=== PATIENT | female | born 1985 | race Two or more races ===

== ENCOUNTER 2023-02-22 08:01 | Inpatient (IN) | payer OTHER ==
[~2023-02-22] VITALS: Ht 157.5 cm; Wt 71.7 kg
[2023-02-22 09:16] LABS: MEAN CORPUSCULAR HGB CONC 29.8 g/dl (32.0-36.0); PLATELET COUNT 448 K/uL (150-450); RED BLOOD COUNT 3.97 M/uL (4.00-6.00)
[2023-02-22 09:18] LABS: HEMOGLOBIN 6.4 g/dL (12.0-15.00); MEAN CELL VOLUME 53.9 fL (80.00-100.00); MEAN CORPUSCULAR HEMOGLOBIN 16.1 pg (27.00-32.0)
[2023-02-22 09:19] LABS: HEMATOCRIT 21.4 % (36.0-45.00)
[2023-02-22 09:27] LABS: INR 1.03; PARTIAL THROMBOPLASTIN TIME 25.9 SECONDS (22.0-34.0); PROTHROMBIN TIME 10.8 SECONDS (9.0-11.5)
[2023-02-22 09:30] LABS: CALCIUM 9.2 mg/dL (8.5-10.1); CREATININE SERUM 0.65 mg/dL (0.55-1.02); GFR 102.01; POTASSIUM 3.59 mEq/L (3.5-5.1)
[2023-02-22 10:33] LABS: URINE APPEARANCE Clear; URINE BILIRRUBIN Negative (NEGATIVE); URINE BLOOD Trace; URINE COLOR Yellow; URINE GLUCOSE Negative (NEGATIVE); URINE LEUKOCYTE Trace; URINE NITRATE Negative; URINE PROTEIN Negative (NEGATIVE); URINE UROBILINOGEN 0.2 E.U./dl
[2023-02-22 10:39] LABS: URINE BACTERIA 472.3 uL (0.0-1933); URINE EPITHELIAL CELLS 33.2 uL (0.0-38.8); URINE RBC 32.6 uL (0.0-20.8); URINE WBC 36.7 uL (0.0-23.2)
[2023-02-22] MEDS ORDERED: SPRINTEC 28 DA1 EACH PO (20:30)
[2023-02-22] MEDS ORDERED: IRON325 MG PO (20:31)
[2023-02-23 09:02] LABS: MEAN CORPUSCULAR HGB CONC 31.3 g/dl (32.0-36.0); PLATELET COUNT 421 K/uL (150-450); RED BLOOD COUNT 4.79 M/uL (4.00-6.00)
[2023-02-23 09:06] LABS: HEMATOCRIT 29.5 % (36.0-45.00); HEMOGLOBIN 9.2 g/dL (12.0-15.00); MEAN CELL VOLUME 61.5 fL (80.00-100.00); MEAN CORPUSCULAR HEMOGLOBIN 19.2 pg (27.00-32.0)
== END 2023-02-23 11:34 | disposition home or self-care (01) | DRG 812 ==
LOC: ER 08:02 → OB/GYN 21:40
PROVIDERS: Emergency Medicine; ADMIT Obstetrics & Gynecology; ATTEND Obstetrics & Gynecology
PROC: 30233N1 Transfusion of Nonautologous Red Blood Cells into Peripheral Vein, Percutaneous Approach (ICD-10-PCS; principal; 2023-02-22)
PROC: BU4CZZZ Ultrasonography of Uterus and Ovaries (ICD-10-PCS; 2023-02-22)
DX: D64.9 Anemia, unspecified (principal); N93.9 Abnormal uterine and vaginal bleeding, unspecified; Z20.822 Contact with and (suspected) exposure to COVID-19

== ENCOUNTER 2024-06-15 19:55 | Emergency (ER) | payer OTHER ==
[~2024-06-15] VITALS: Ht 157.5 cm; Wt 75.3 kg
[~2024-06-15 19:55] MED LIST: IRON325 MG PO; SPRINTEC 28 DA1 EACH PO
[2024-06-15 22:22] LABS: MEAN CORPUSCULAR HGB CONC 29.2 g/dl (32.0-36.0); PLATELET COUNT 495 K/uL (150-450); RED BLOOD COUNT 3.81 M/uL (4.00-6.00)
[2024-06-15 22:25] LABS: HEMATOCRIT 20.6 % (36.0-45.00); MEAN CELL VOLUME 54.1 fL (80.00-100.00); MEAN CORPUSCULAR HEMOGLOBIN 15.7 pg (27.00-32.0); RED CELL DISTRIBUTION WIDTH 20.9 % (11.5-14.5)
[2024-06-15 22:31] LABS: INR 1.03; PARTIAL THROMBOPLASTIN TIME 24.5 SECONDS (22.0-34.0); PROTHROMBIN TIME 11.2 SECONDS (9.0-11.5)
[2024-06-15 22:35] LABS: ALBUMIN 3.5 gm/dL (3.4-5.0); BILIRUBIN TOTAL 0.32 mg/dL (0.3-1.2); CREATININE SERUM 0.81 mg/dL (0.55-1.02); GFR 78.31; GLOBULINA 4.4 G/DL (2.4-3.5); POTASSIUM 3.72 mEq/L (3.5-5.1); TOTAL PROTEIN 7.9 gm/dL (6.4-8.2)
[2024-06-16 00:16] LABS: PH,URINE 7.5 (5.0-8.0); URINE APPEARANCE Turbid; URINE BILIRRUBIN Negative (NEGATIVE); URINE BLOOD Negative; URINE COLOR Yellow; URINE GLUCOSE Negative (NEGATIVE); URINE KETONE Negative (NEGATIVE); URINE LEUKOCYTE Negative; URINE NITRATE Negative; URINE PROTEIN Negative (NEGATIVE); URINE UROBILINOGEN 0.2 E.U./dl
[2024-06-16 00:21] LABS: URINE BACTERIA 358.5 uL (0.0-1933); URINE EPITHELIAL CELLS 33.2 uL (0.0-38.8); URINE RBC 13.8 uL (0.0-20.8); URINE WBC 10.1 uL (0.0-23.2)
[2024-06-16] MEDS ORDERED: ESTROGENS, CONJUGATED 25 MG VIAL IV STA (06:48)
[2024-06-16] MEDS ORDERED: SPRINTEC 28 DA1 EACH PO (13:54)
[2024-06-16] MEDS ORDERED: MAXFE CAPLET1 EAC1 PO (13:54)
[2024-06-16 21:43] LABS: HEMATOCRIT 29.6 % (36.0-45.00); MEAN CELL VOLUME 60.4 fL (80.00-100.00); MEAN CORPUSCULAR HEMOGLOBIN 18.7 pg (27.00-32.0); MEAN CORPUSCULAR HGB CONC 30.9 g/dl (32.0-36.0); PLATELET COUNT 442 K/uL (150-450); RED BLOOD COUNT 4.91 M/uL (4.00-6.00); RED CELL DISTRIBUTION WIDTH 29.2 % (11.5-14.5)
[2024-06-16 21:44] LABS: HEMOGLOBIN 9.2 g/dL (12.0-15.00)
== END 2024-06-16 22:44 | disposition home or self-care (01) ==
LOC: ER 19:56
PROVIDERS: General Practice
DX: D64.9 Anemia, unspecified (principal); N85.2 Hypertrophy of uterus; N83.202 Unspecified ovarian cyst, left side; Z88.0 Allergy status to penicillin
CPT/HCPCS: 36415; 36430; 76856; 93005; P9021